=== PATIENT | male | born 1980 | race African-American/Black ===

== ENCOUNTER 2021-07-03 15:56 | Emergency (ER) | payer OTHER, SELFPAY ==
--- NOTE | ~2021-07-03 | CT_ITS ---
EXAMINATION: CT brain wo con DATE: 07/03/2021 17:04 INDICATION: Headache. TECHNIQUE: Computed tomography (CT) of the head was performed without intravenous contrast. Automated exposure control and iterative reconstruction technique were employed. The dose-length product was 6 05.33 mGy-cm. COMPARISON: None FINDINGS: No acute intracranial hemorrhage or extra-axial fluid collection. No hydrocephalus, mass, or herniation. No acute ischemic infarct. Unremarkable dural venous sinus attenuation. No acute osseous abnormality. The aerated spaces are clear. IMPRESSION: No acute intracranial process. Reviewed, dictated and finalized at location K.
[2021-07-03 15:58] VITALS: BP 138/88; PULSE 85; RESP 18; TEMP 36.2; O2SAT 99
[2021-07-03] MEDS: HYDROcodone/acetaminophen (*CRX) 5-325 MG TABLET 1 TAB PO (16:45)
--- NOTE | 2021-07-03 17:37 | ED.GENADULT ---
HPI - General Adult General Chief complaint: Unspecified Stated complaint: Right Facial Pain, Ear Time Seen by Provider: 07/03/21 16:05 Source: RN notes reviewed History of Present Illness HPI narrative: Patient presents emergency department from home for right jaw pain. Patient states symptoms been ongoing for the past 2 months pain is located in the right jaw and radiates into the right ear down the jaw and then up into the head he states he has intermittent headaches with it as well. Pain is worse when he chews on that side states the pain did appear to occur after he had a root canal on his left side and been treated more on his right side denies any direct trauma or injury denies any fever chills states he has been taking ibuprofen for the pain states he saw a dentist and was told he had no dental issues Related Data Allergies Allergy/AdvReac Type Severity Reaction Status Date / Time No Known Allergies Allergy Verified 07/03/21 16:02 Review of Systems Review of Systems: Gen.: Denies fevers or chills HEENT: See HPI Respiratory: Denies shortness of breath or cough CV: Denies chest pain or palpitations GI: Denies abdominal pain nausea, emesis Musculoskeletal: Denies back pain or muscle pain Neuro: Denies numbness, tingling, weakness or focal weakness reports intermittent headaches Skin: Denies rash Except as documented, all other systems reviewed and negative PMFSH Past Medical History Medical History (Updated 07/03/21 @ 17:40 by Gold Brenner DO) Patient denies significant medical history Social History Social History (Updated 07/03/21 @ 17:38 by Gold Brenner DO) Smoking status: Never smoker Exam Narrative: APPEARANCE: No acute distress, nontoxic, resting in bed EYES: EOMI HEENT: Normocephalic, atraumatic, TMs clear bilaterally nares pain or mucosa moist tender palpation over the right TMJ with pain with fully opening the mouth RESPIRATORY: No respiratory distress MUSCULOSKELETAl: Moves all extremities. NEURO: Awake and alert. Following commands, speech normal, no focal deficits SKIN:: Warm, dry. No rashes lesions or abrasions PSYCHIATRIC: Normal affect/mood, Course Course Emergency Course: Discussed with patient results of workup and diagnosis. Discussed need for follow-up with primary care, proper use of medication, and reasons to return to the emergency department. Patient understands and agrees to current treatment plan Vital Signs Vital signs: Vital Signs Temperature 97.2 F L 07/03/21 15:58 Pulse Rate 85 07/03/21 15:58 Respiratory Rate 18 07/03/21 15:58 Blood Pressure 138/88 07/03/21 15:58 Pulse Oximetry 99 07/03/21 15:58 Temperature 97.2 F L 07/03/21 15:58 Pulse Rate 85 07/03/21 15:58 Respiratory Rate 18 07/03/21 15:58 Blood Pressure 138/88 07/03/21 15:58 Pulse Oximetry 99 07/03/21 15:58 Medical Decision Making Vital Signs Vital Signs: Vital Signs Temperature 97.2 F L 07/03/21 15:58 Pulse Rate 85 07/03/21 15:58 Respiratory Rate 18 07/03/21 15:58 Blood Pressure 138/88 07/03/21 15:58 Pulse Oximetry 99 07/03/21 15:58 Temperature 97.2 F L 07/03/21 15:58 Pulse Rate 85 07/03/21 15:58 Respiratory Rate 18 07/03/21 15:58 Blood Pressure 138/88 07/03/21 15:58 Pulse Oximetry 99 07/03/21 15:58 Imaging Data Radiologist's impression: ITS Impressions Head CT 07/03/21 17:15 IMPRESSION: No acute intracranial process. Discharge Plan Discharge Clinical Impression: TMJ (temporomandibular joint disorder) Patient Disposition: Home, Self-Care Condition: Stable Instructions: Antibiotic Form, Temporomandibular Disorder (ED) Additional Instructions: Return for increasing pain or any other symptoms of concern Prescriptions: New hydrocodone-acetaminophen 5-325 mg tablet 1 tablet PO Q4H PRN (Reason: pain) Qty: 6 RF: 0 ibuprofen [IBU] 600 mg tablet 600 mg PO Q6H PRN (Reason:
== END 2021-07-03 17:55 | disposition home or self-care (01) ==
PROVIDERS: Emergency Provider Emergency Medicine
DX: M26.601 Right temporomandibular joint disorder, unspecified (principal)
CPT/HCPCS: 70450; 99284; A9270

== ENCOUNTER 2022-09-21 23:11 | Emergency (ER) | payer OTHER, SELFPAY ==
--- NOTE | ~2022-09-21 | XR_ITS ---
Right Hand Technique: PA, oblique, and lateral views were obtained. Clinical History: Injury Findings: No acute fracture or dislocation is seen. Osseous alignment is anatomic. Joint spaces are p reserved. There is soft tissue swelling of the distal aspect of the third digit. Impression: No fracture or dislocation. Soft tissue swelling of the distal third digit. Reviewed, dictated and finalized at location . Impression: No fracture or dislocation. Soft tissue swelling of the distal third digit.
[2022-09-21 23:16] VITALS: BP 164/80; PULSE 65; RESP 18; TEMP 36.5; O2SAT 100
--- NOTE | 2022-09-21 23:29 | ED.GENADULT ---
HPI - General Adult General Chief complaint: Extremity Injury, Upper <Candelario Grijalva PA-C - Last Filed: 09/22/22 17:02> Stated complaint: finger swelling <Candelario Grijalva PA-C - Last Filed: 09/22/22 17:02> Time Seen by Provider: 09/21/22 23:25 <Candelario Grijalva PA-C - Last Filed: 09/22/22 17:02> Source: patient <Candelario Grijalva PA-C - Last Filed: 09/22/22 17:02> Mode of arrival: ambulatory <Candelario Grijalva PA-C - Last Filed: 09/22/22 17:02> Limitations: no limitations <Candelario Grijalva PA-C - Last Filed: 09/22/22 17:02> History of Present Illness HPI narrative: This is a 41-year-old male who presents to the ED with chief complaint of a right hand injury occurring 2 days ago. States he has had subsequent swelling and pain to the end of the finger now. He is concerned for infection. He reports he was working on a car and had the finger smashed in a car naldo that fell to the ground. Denies any further site of pain or injury. Denies fevers, chills, systemic symptoms. <Candelario Grijalva PA-C - Last Filed: 09/22/22 17:02> Related Data Allergies/adverse reactions: Allergies Allergy/AdvReac Type Severity Reaction Status Date / Time No Known Allergies Allergy Verified 09/21/22 23:16 <Candelario Grijalva PA-C - Last Filed: 09/22/22 17:02> [facility] Past Medical History Medical History: Medical History (Updated 09/22/22 @ 00:43 by Candelario Grijalva PA-C) Patient denies significant medical history <Candelario Grijalva PA-C - Last Filed: 09/22/22 17:02> Social History Social History: Social History (Updated 07/03/21 @ 17:38 by Gold Brenner DO) Smoking status: Never smoker <Candelario Grijalva PA-C - Last Filed: 09/22/22 17:02> Exam Narrative: GENERAL: Well-appearing, well-nourished, and in no acute distress. HEAD: Normocephalic, atraumatic. EYES: PERRLA and EOMI. ENT: Nares clear, no rhinorrhea or epistaxis. Mucous membranes moist. Oropharynx without tonsillar hypertrophy exudate or other lesions. NECK: Supple. No adenopathy or masses. CHEST: No respiratory distress. Clear to auscultation. No wheezes rales or rhonchi HEART: Regular rate and rhythm. No murmur heard. Normal peripheral pulses. ABDOMEN: Soft, nontender, nondistended, normal active bowel sounds. MSK: Right UE: Area of swelling to the distal right middle finger. Significantly tender throughout the distal finger. Neurovascular intact distally. No active drainage. Full range of motion. Negative Kanavel signs Left UE: Benign. Normal range of motion. No edema. SKIN: Warm, dry, no rash. NEURO: Alert and oriented x3. No focal deficits. PSYCH: Normal mood and affect. <Candelario Grijalva PA-C - Last Filed: 09/22/22 17:02> Course [employer]REFIGHTING EQUIPMENT SPECIALIST/PA Physician Supervision For this patient encounter, I reviewed the FIREFIGHTING EQUIPMENT SPECIALIST or PA documentation, treatment plan, and I was responsible for the medical decision making medical decision making; and I had [id number] time with this patient and I performed the procedure. <Talib Bower MD - Last Filed: 09/22/22 05:53> Vital Signs Vital signs: Vital Signs Temperature 97.7 F 09/21/22 23:16 Pulse Rate 65 09/21/22 23:16 Respiratory Rate 18 09/21/22 23:16 Blood Pressure 164/80 H 09/21/22 23:16 Pulse Oximetry 100 09/21/22 23:16 Oxygen Delivery Room Air 09/21/22 23:16 Temperature 97.7 F 09/21/22 23:16 Pulse Rate 65 09/21/22 23:16 Respiratory Rate 18 09/21/22 23:16 Blood Pressure 164/80 H 09/21/22 23:16 Pulse Oximetry 100 09/21/22 23:16 Oxygen Delivery Room Air 09/21/22 23:16 <Candelario Grijalva PA-C - Last Filed: 09/22/22 17:02> Vital Signs Temperature 97.7 F 09/21/22 23:16 Pulse Rate 65 09/21/22 23:16 Respiratory Rate 18 09/21/22 23:16 Blood Pressure 164/80 H 09/21/22 23:16 Pulse Oximetry 100 09/21/22 23:16 Oxygen Delivery Room Air 09/21/22 23:16 Temperature 97.7 F 09/21/22 23:16 Pulse Rate 65 09/21/22
[2022-09-21] MEDS: TETANUS,DIPHTHERIA,AC PERTUSSIS ADULT (0.5 ML) BOOSTRIX IM (23:54)
== END 2022-09-22 00:53 | disposition home or self-care (01) ==
PROVIDERS: Emergency Provider Physician Assistant; PCP Family Medicine
DX: L03.011 Cellulitis of right finger (principal); Z23 Encounter for immunization
CPT/HCPCS: 10060; 26010; 73130; 87070; 87077; 87147; 87181; 87186; 87205; 90471; 90715; 99283